=== PATIENT | female | born 1955 | race Caucasian/White ===

== ENCOUNTER 2016-12-13 17:33 | Emergency (ER) | payer OTHER ==
[~2016-12-13] VITALS: Ht 157.5 cm; Wt 83.0 kg
[~2016-12-13 17:33] MED LIST: BUPR1TAB29 PO; CYMB30CA PO; ESTR1 PO; HYDR25TA5 PO; LEFL1TAB3 PO; METO25TA3 PO; OMEP20TA PO; ROPI2 PO; TELM40 PO
[2016-12-13 17:54] VITALS: BP 134/80; PULSE 70; RESP 16; TEMP 98.6; O2SAT 96
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
== END 2016-12-13 19:30 | disposition home or self-care (01) ==
LOC: PHEFT 17:33
DX: R51 Headache (principal); M54.2 Cervicalgia; S60.512A Abrasion of left hand, initial encounter; S10.91XA Abrasion of unspecified part of neck, initial encounter; I10 Essential (primary) hypertension; E07.9 Disorder of thyroid, unspecified; K21.9 Gastro-esophageal reflux disease without esophagitis; V43.52XA Car driver injured in collision with other type car in traffic accident, initial encounter; Y99.8 Other external cause status
CPT/HCPCS: 99283